=== PATIENT | female | born 1975 | race African-American/Black ===

== ENCOUNTER → 2016-08-15 | Outpatient (CLI) | payer OTHER ==
[2012-08-20 12:52] VITALS: BP 112/70
[2016-08-15 13:01] LABS: BASOPHILS # (AUTO) 0.1 X10^3/uL (0.0-0.1); BASOPHILS % (AUTO) 0.7 % (0.2-1.0); EOSINOPHILS # (AUTO) 0.1 x10^3/uL (0.0-0.2); HEMATOCRIT 40.2 % (36.0-47.0); HEMOGLOBIN 13.3 g/dL (12.0-16.0); LYMPHOCYTES # (AUTO) 2.7 X10^3/uL (1.3-2.9); LYMPHOCYTES % (AUTO) 25.7 % (21.0-51.0); MEAN CORPUSCULAR HGB CONC 33.1 g/dL (33.0-35.0); MEAN CORPUSCULAR VOLUME 84.6 fL (80.0-100.0); MEAN PLATELET VOLUME 7.6 fL (7.4-11.0); MONOCYTES # (AUTO) 0.5 x10^3/uL (0.3-0.8); NEUTROPHILS % (AUTO) 67.6 % (42.0-75.0); PLATELET COUNT 265 X10^3/uL (150.0-450.0); RED BLOOD COUNT 4.76 X10^6/uL (3.5-5.4); RED CELL DISTRIBUTION WIDTH 14.7 % (11.6-16.5); WHITE BLOOD COUNT 10.4 X10^3/uL (3.6-10.0)
== END ==
LOC: LAB 12:34
PROVIDERS: ATTEND Obstetrics & Gynecology Obstetrics
DX: N92.0 Excessive and frequent menstruation with regular cycle (principal)
CPT/HCPCS: 36415; 82728; 85025

== ENCOUNTER → 2016-08-20 | Outpatient (CLI) | payer OTHER ==
[2012-08-20 12:52] VITALS: BP 112/70
--- NOTE | 2016-08-21 17:27 | MG ---
HISTORY: SCREENING Comparison: July 26, 2015 FINDINGS: Bilateral CC and MLO projections of the right and left breast were obtained. Heterogeneously dense fibroglandular tissue is seen to be present without suspicious interval change. No significant arch itectural distortion, mass or clustered microcalcifications can be observed to suggest malignancy. No skin thickening or nipple retraction is appreciated. No pathological lymphadenopathy can be telly ntified. IMPRESSION: NO RADIOGRAPHIC EVIDENCE OF MALIGNANCY. ACR CATEGORY I - NEGATIVE EXAM. FOLLOW-UP EXAM 1 YEAR. Diagnostic CAD was utilized and reviewed. * 0 (ZERO) - ASSESSMENT INCOMPLETE; ADDITIONAL IMAGING IS NEEDED. * 1/ (ONE) - NEGATIVE. * 2/II (TWO) - BENIGN FINDINGS. * 3/III (THREE) - PROBABLY BENIGN FINDING; SHORT INTERVAL FOLLOW-UP SUGGESTED. * 4/IV (FOUR) - SUSPICIOUS ABNORMALITY; BIOPSY SHOULD BE CONSIDERED. * 5/V (FIVE) - HIGHLY SUSPICIOUS OF MALIGNANCY; BIOPSY SHOULD BE PERFORMED. A NEGATIVE X-RAY REPORT SHOULD NOT DELAY BIOPSY IF A DOMINANT OR CLINICALLY SUSPICIOUS MASS IS PRESENT; 4 TO 8 PERCENT OF CANCERS ARE NOT IDENTIFIED BY X-RAY. A NEG ATIVE REPORT MAY REINFORCE THE CLINICAL IMPRESSION. ADENOSIS AND DENSE BREASTS MAY OBSCURE AN UNDER LYING NEOPLASM. Reported By:
== END ==
LOC: RAD 10:34
PROVIDERS: ATTEND Obstetrics & Gynecology Obstetrics
DX: Z12.31 Encounter for screening mammogram for malignant neoplasm of breast (principal)
CPT/HCPCS: 77067

== ENCOUNTER → 2016-11-08 | Outpatient (CLI) | payer OTHER ==
[2016-08-15 15:50] VITALS: BP 133/81
[2016-11-08 08:54] LABS: BASOPHILS # (AUTO) 0.1 X10^3/uL (0.0-0.1); BASOPHILS % (AUTO) 0.8 % (0.2-1.0); BILIRUBIN,URINE NEGATIVE (NEGATIVE); BLOOD/HEMOGLOBIN,URINE 4+ (NEGATIVE); EOSINOPHILS # (AUTO) 0.2 x10^3/uL (0.0-0.2); EOSINOPHILS % (AUTO) 1.4 % (0.9-2.9); GLUCOSE, URINE NEGATIVE (NEGATIVE); HEMATOCRIT 39.9 % (36.0-47.0); HEMOGLOBIN 13.6 g/dL (12.0-16.0); KETONES,URINE NEGATIVE (NEGATIVE); LEUKOCYTE ESTERASE ,URINE NEGATIVE (NEGATIVE); LYMPHOCYTES # (AUTO) 1.9 X10^3/uL (1.3-2.9); LYMPHOCYTES % (AUTO) 17.3 % (21.0-51.0); MEAN CORPUSCULAR HEMOGLOBIN 28.7 pg (27.0-34.0); MEAN CORPUSCULAR VOLUME 84.5 fL (80.0-100.0); MEAN PLATELET VOLUME 7.9 fL (7.4-11.0); MONOCYTES # (AUTO) 0.5 x10^3/uL (0.3-0.8); MONOCYTES % (AUTO) 4.4 % (0.0-13.0); NEUTROPHILS # (AUTO) 8.5 x10^3/uL (2.2-4.8); NEUTROPHILS % (AUTO) 76.1 % (42.0-75.0); NITRITES,URINE NEGATIVE (NEGATIVE); PH,URINE 6.5 (5.0 - 8.0); PLATELET COUNT 262 X10^3/uL (150.0-450.0); PROTEIN,URINE NEGATIVE (NEGATIVE); RED BLOOD COUNT 4.73 X10^6/uL (3.5-5.4); RED CELL DISTRIBUTION WIDTH 14.9 % (11.6-16.5); UROBILINOGEN,URINE NORMAL (NORMAL); WHITE BLOOD COUNT 11.1 X10^3/uL (3.6-10.0)
[2016-11-08 09:15] LABS: APPEARANCE,URINE HAZY (CLEAR); BACTERIA,URINE TRACE /HPF (NEGATIVE); COLOR,URINE YELLOW (YELLOW); RBC,URINE 0-2 /HPF (NEGATIVE); SQUAMOUS EPITHELIAL CELL,UR FEW /HPF (NEGATIVE)
[2016-11-08 09:17] LABS: BLOOD UREA NITROGEN 7 mg/dL (7-18); CALCIUM 8.8 mg/dL (8.5-10.1); CARBON DIOXIDE 25.4 mmol/L (21-32); CHLORIDE 103 mmol/L (98-107); CREATININE 0.72 mg/dL (0.55-1.02); GLUCOSE 109 mg/dL (65-99); SODIUM 138 mmol/L (136-145); eGFR BLACK RACES > 60 (>60); eGFR NON BLACK RACES > 60 (>60)
[2016-11-08 09:29] LABS: SERUM PREGNANCY TEST, QUAL NEGATIVE <10 mIU/mL
== END ==
LOC: LAB 08:17
PROVIDERS: ATTEND Specialist
DX: Z01.818 Encounter for other preprocedural examination (principal); R10.2 Pelvic and perineal pain; N92.5 Other specified irregular menstruation; D25.9 Leiomyoma of uterus, unspecified
CPT/HCPCS: 36415; 80048; 81001; 84703; 85025; 85610; 85730; 86850; 86900; 86901; 87086

== ENCOUNTER → 2016-11-09 | Outpatient (CLI) | payer OTHER ==
[2016-08-15 15:50] VITALS: BP 133/81
--- NOTE | 2016-11-09 15:58 | RAD ---
CHEST RADIOGRAPHS PA AND LATERAL VIEWS CLINICAL HISTORY: 41-year-old female, preoperative examination for hysterectomy. COMPARISON: None. FINDINGS: The cardiopericardial silhouette is normal. There is no focal consolidation, pleural effu denilson or pneumothorax. The lungs are well inflated. Pulmonary vascularity is normal. Imaged osseous s tructures are intact. Soft tissues are unremarkable. IMPRESSION: No acute cardiopulmonary process. Reported By:
== END ==
LOC: RAD 08:04
PROVIDERS: ATTEND Specialist
DX: Z01.810 Encounter for preprocedural cardiovascular examination (principal); Z01.811 Encounter for preprocedural respiratory examination; R10.2 Pelvic and perineal pain; N92.5 Other specified irregular menstruation; D25.9 Leiomyoma of uterus, unspecified
CPT/HCPCS: 71020; 93005; 93010

== ENCOUNTER 2016-11-11 06:18 | Observation (INO) | payer OTHER ==
[2016-11-11] MEDS ORDERED: ANCEF VIAL 1 GM 1 GM in NS 50 ML IV + SPIKE MINIBAG* 50 ML IV PRN ×2 (06:20→10:50)
[2016-11-11] MEDS ORDERED: D5 1/2 NS 1000 ML 1,000 ML IV SCH ×2 (06:20→10:50)
[2016-11-11] MEDS ORDERED: ANCEF VIAL 1 GM ONE (06:23)
[2016-11-11] MEDS ORDERED: NS 50 ML IV + SPIKE MINIBAG* 50 ML IV ONE (06:23)
[2016-11-11] MEDS ORDERED: VASOSTRICT INJ 20 UNITS VIAL ONE (06:36)
[2016-11-11] MEDS ORDERED: LR 1000 ML IV 1,000 ML IV ONE (07:08)
[2016-11-11] MEDS ORDERED: FENTANYL INJ 100 mcg ONE (07:09)
[2016-11-11] MEDS ORDERED: DURAMORPH ONE (07:09)
[2016-11-11] MEDS ORDERED: XYLOCAINE 1 % (PLAIN) ONE ×2 (07:28→14:04)
[2016-11-11] MEDS ORDERED: NS IRRIGATION 1000 ML 1,000 ML IR ONE (08:50)
[2016-11-11] MEDS ORDERED: PHENERGAN INJ 25 MG IVP PRN (09:05)
[2016-11-11] MEDS ORDERED: REGLAN INJ 10 MG VIAL IVP PRN ×2 (09:05→10:50)
[2016-11-11] MEDS ORDERED: BENADRYL INJ 50 MG VIAL IVP PRN ×3 (09:05→10:50)
[2016-11-11] MEDS ORDERED: ZOFRAN INJ 4 MG VIAL IVP PRN ×3 (09:05→10:50)
[2016-11-11] MEDS ORDERED: TORADOL 30 MG VIAL IVP PRN ×2 (10:50)
[2016-11-11] MEDS ORDERED: NARCAN INJ IVP PRN (10:50)
[2016-11-11] MEDS ORDERED: PERCOCET TAB 5/325 MG PO PRN ×2 (10:50→17:12)
[2016-11-11] MEDS ORDERED: D5 1/2 NS 1000 ML 1,000 ML IV ONE (11:15)
[2016-11-11] MEDS: D5 1/2 NS 1000 ML 1,000 ML IV SCH ×3 (11:16→21:32)
[2016-11-11] MEDS ORDERED: LTA KIT LIDOCAINE 4% ONE (14:04)
[2016-11-11] MEDS ORDERED: VERSED ONE (14:04)
[2016-11-11] MEDS ORDERED: ZOFRAN INJ 4 MG VIAL ONE (14:04)
[2016-11-11] MEDS ORDERED: SUPRANE IN ONE (14:04)
[2016-11-11] MEDS ORDERED: DIPRIVAN VIAL ONE (14:04)
[2016-11-11] MEDS ORDERED: QUELICIN (OR ANECTINE) ONE (14:04)
[2016-11-12] MEDS ORDERED: D5 1/2 NS 1000 ML 1,000 ML IV ONE (04:49)
[2016-11-12] MEDS: D5 1/2 NS 1000 ML 1,000 ML IV SCH (05:05)
[2016-11-12 05:20] LABS: BLOOD UREA NITROGEN 7 mg/dL (7-18); CALCIUM 7.7 mg/dL (8.5-10.1); CARBON DIOXIDE 27.4 mmol/L (21-32); CHLORIDE 101 mmol/L (98-107); CREATININE 0.71 mg/dL (0.55-1.02); GLUCOSE 105 mg/dL (65-99); SODIUM 137 mmol/L (136-145); eGFR BLACK RACES > 60 (>60); eGFR NON BLACK RACES > 60 (>60)
[2016-11-12 05:49] LABS: BASOPHILS # (AUTO) 0.1 X10^3/uL (0.0-0.1); BASOPHILS % (AUTO) 0.4 % (0.2-1.0); EOSINOPHILS # (AUTO) 0.1 x10^3/uL (0.0-0.2); EOSINOPHILS % (AUTO) 0.5 % (0.9-2.9); HEMATOCRIT 33.1 % (36.0-47.0); LYMPHOCYTES # (AUTO) 2.4 X10^3/uL (1.3-2.9); LYMPHOCYTES % (AUTO) 16.7 % (21.0-51.0); MEAN CORPUSCULAR HEMOGLOBIN 28.6 pg (27.0-34.0); MEAN CORPUSCULAR HGB CONC 33.3 g/dL (33.0-35.0); MEAN CORPUSCULAR VOLUME 85.9 fL (80.0-100.0); MEAN PLATELET VOLUME 8.2 fL (7.4-11.0); MONOCYTES # (AUTO) 0.6 x10^3/uL (0.3-0.8); MONOCYTES % (AUTO) 4.2 % (0.0-13.0); NEUTROPHILS # (AUTO) 11.1 x10^3/uL (2.2-4.8); NEUTROPHILS % (AUTO) 78.2 % (42.0-75.0); PLATELET COUNT 224 X10^3/uL (150.0-450.0); RED BLOOD COUNT 3.86 X10^6/uL (3.5-5.4); RED CELL DISTRIBUTION WIDTH 14.7 % (11.6-16.5); WHITE BLOOD COUNT 14.2 X10^3/uL (3.6-10.0)
[2016-11-12] MEDS ORDERED: K-RIDER 10 MEQ/NS 100 ML 10 MEQ/100 ML BAG IV PRN (06:02)
[2016-11-12] MEDS ORDERED: POTASSIUM CHLORIDE LIQ 20 MEQ UDC PO PRN (06:02)
[2016-11-12] MEDS ORDERED: K-LYTE EFFERVESCENT PO PRN (06:02)
[2016-11-12] MEDS ORDERED: K-DUR TAB 20 MEQ PO PRN (06:02)
[2016-11-12 07:58] VITALS: BMI 33.9
[2016-11-12 11:42] VITALS: BP 108/65
== END 2016-11-12 09:45 | disposition home or self-care (01) ==
LOC: SURG1 06:18 → MED/SURG 09:40
PROVIDERS: ADMIT Specialist; ATTEND Specialist
PROC: 0UTC7ZZ Resection of Cervix, Via Natural or Artificial Opening (ICD-10-PCS; 2016-11-11)
PROC: 0UT97ZZ Resection of Uterus, Via Natural or Artificial Opening (ICD-10-PCS; principal; 2016-11-11 07:30)
DX: N92.5 Other specified irregular menstruation (principal); D25.9 Leiomyoma of uterus, unspecified; R10.2 Pelvic and perineal pain
CPT/HCPCS: 36415; 80048; 85025; A4222; G0378; J0330; J0690; J1885; J2001; J2250; J2405; J3010; J3490; J7042; J7120